=== PATIENT | female | born 1990 | race African-American/Black ===

== ENCOUNTER 2021-04-29 00:29 | Emergency (ER) | payer OTHER ==
[~2021-04-29] VITALS: Ht 185.4 cm; Wt 86.2 kg
--- NOTE | ~2021-04-29 | EMS ---
[facility] [address] [place] [address] EMS Patient Care Report Name: RICO NESS Room #: PRE M.R.#: [id number] Admission: Attend Phys: Discharge: Date of : [birth year] Report #: [id number] THIS REPORT FOR: //name// Report Transmitted: 04/29/2021 00:13 EMS Care Summary [place], [place] Incident [id number] @ 04/28/2021 23:41 Incident Location [address] [place] [address] Patient RICO NESS Male, 30 Years 1990 Patient Address [address] [place] [address] Patient History Asthma, Patient Allergies Aspirin, Patient Medications Albuterol, Chief Complaint ASTHMA ATTACK Disposition Transported No Lights/[place] Dispatch Reason Breathing Problem Transported To [facility] Narrative MEDIC 42 DISPATCHED FOR BREATHING PROBLEMS. UPON ARRIVAL ON SCENE THE PATIENT WAS FOUND SEATED UPRIGHT APPEARING IN NO DISTRESS RECEIVING CARE FROM PUMPER 41 WHO WAS ALREADY ON SCENE. THE PATIENT WAS RECIVING A ALBUTEROL TREATMENT THAT WAS SET UP PRIOR TO OUR ARRIVAL. PUMPER 41 INFORMED US THAT THE PATIENT [facility] [address] [place] [address] EMS Patient Care Report Name: RICO NESS Room #: [facility].#: [id number] Admission: Attend Phys: Discharge: Date of : 86 Report #: [id number] BELIEVED HE WAS HAVING AN ASTHMA ATTACK AND TRIED TO USE HIS RESCUE INHALER SIX TIMES AND IT DID NOT RELIEVE SYMPTOMS AT ALL. THE PATIENT'S MOTHER STATED HE DOES HAVE A HISTORY OF ASTHMA ATTACKS. IT IS LEARNED ON SCENE THAT THE PATIENT WAS BORN FEMALE BUT IDENTIFIES MALE. AFTER THE FIRST TREATMENT WAS DONE ON SCENE THE PATIENT STILL HAD WHEEZING IN ALL LOBES ON AUSCUALTATION. THE PATIENT STATED HE WANTED TO GO TO [facility]. THE PATIENT WAS ABLE TO WALK UNDER HIS OWN POWER OUTSIDE TO OUR STRETCHER WITHOUT INCIDENT AND WAS THEN TAKEN TO OUR AMBULANCE WITHOUT INCIDENT. IN THE AMBULANCE ANOTHER TREATMENT WAS STARTED AND MORE VITALS WERE OBTAINED. THE PATIENT'S LEVEL OF WHEEZING DID IMPROVE DURING TRANSPORT BUT THE WHEEZING WAS STILL PRESENT. NO OTHER CHANGES IN PATIENT CONDITION WERE SEEN DURING TRANSPORT. UPON ARRIVAL TO THE HOSPITAL THE PATIENT WAS MOVED TO THE ED WITHOUT INCIDENT AND CARE WAS TRANSFERRED TO THE ED NURSE. Initial Vitals @00:20P: 133,SpO2: 99, @00:25P: 131,BP: 112/77,SpO2: 100, @PTASpO2: 86, @00:20P: 118,R: 16,BP: 119/45,Pain: 0/10,GCS: 15,Glucose: 98,SpO2: 100,Revised Trauma: 12, @00:08P: 128,R: 18,BP: 126/81,Pain: 0/10,GCS: 15,SpO2: 100,Revised Trauma: 12, Assessments @23:58MENTAL:Person Oriented,Time Oriented,Place Oriented,Event Oriented,SKIN:HEENT:Head/Face: No Abnormalities,Neck/Airway: No Abnormalities,LUNG SOUNDS:ABDOMEN:PELVIS//GI:EXTREMITIES:Capillary Refill: Right Upper: < 2 Sec,Capillary Refill: Left Upper: < 2 Sec,Left Arm: No Abnormalities,Right Arm: No Abnormalities,PULSE:Radial: 2+ Normal,NEURO:@00:22MENTAL:Event Oriented,Time Oriented,Place Oriented,Person Oriented,SKIN:HEENT:Head/Face: No Abnormalities,Neck/Airway: No Abnormalities,LUNG SOUNDS:ABDOMEN:PELVIS//GI:EXTREMITIES:Capillary Refill: Right Upper: < 2 Sec,Capillary Refill: Left Upper: < 2 Sec,Left Arm: No Abnormalities,Right Arm: No Abnormalities,PULSE:Radial: 2+ Normal,NEURO: Impression Asthma Procedures @23:55 ALS Assessment Response: UnchangedSucceeded @PTAOxygen FlowRate: 8 Device: Nebulizer Response: ImprovedSucceeded @PTAAlbuterol - 2.5 Milligrams (mg) - Nebulized Response: Improved @00:04 Albuterol - 2.5 Milligrams (mg) - Nebulized Response: Improved @00:02 Stretcher Response: Unchanged @00:04 Oxygen FlowRate: 8 Device: Nebulizer Response: ImprovedSucceeded Timeline [facility] [address] [place] [address] EMS Patient Care Report Name: RICO NESS Room #: [facility] M.R.#: [id number] Admission: Attend Phys: Discharge: Date of : 86 Report #: [id number] 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,Oxygen FlowRate: 8 Device: Nebulizer Response: ImprovedSucceeded, 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,Albuterol - 2.5 Milligrams (mg) - Nebulized,Response: Improved 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,BP: / M,PULSE: ,RR: R,SPO2: 86 Ox,ETCO2: ,BG: ,PAIN: ,GCS: , 23:39,Call Received 23:39,Dispatch Notified 23:41,Dispatched 23:43,En Route 23:53,On Scene 23:55,At Patient 23:55,ALS Assessment,Response: UnchangedSucceeded, 00:02,Stretcher,Response: Unchanged 00:04,Albuterol - 2.5 Milligrams (mg) - Nebulized,Response: Improved 00:04,Oxygen FlowRate: 8 Device: Nebulizer Response: ImprovedSucceeded, 00:08,BP: 126/81 M,PULSE: 128,RR: 18 R,SPO2: 100 Ox,ETCO2: ,BG: ,PAIN: 0,GCS: 15, 00:11,Depart Scene 00:20,BP: / M,PULSE: 133,RR: R,SPO2: 99 Ox,ETCO2: ,BG: ,PAIN: ,GCS: , 00:20,BP: 119/45 M,PULSE: 118,RR: 16 R,SPO2: 100 Ox,ETCO2: ,B,PAIN: 0,GCS: 15, 00:25,BP: 112/77 M,PULSE: 131,RR: R,SPO2: 100 Ox,ETCO2: ,BG: ,PAIN: ,GCS: , 00:27,At Destination 00:48,Call Closed Disclaimer v1.1 Copyright 2021 [employer] This EMS Care Summary contains data elements from the applicable legal record (which may be displayed differently). It is designed to provide pertinent information for the following purposes: continuity of care, clinical quality, and state data reporting. The complete legal record is available to ED staff and administrators of the receiving hospital in [employer]'s Patient Tracker. All data is provided "as is."
--- NOTE | ~2021-04-29 | EMS ---
[facility] [address] [place] [address] EMS Patient Care Report Name: RICO NESS Room #: DEP [facility]..#: [id number] Admission: 04/29/21 Attend Phys: Discharge: 04/29/21 Date of : [birth year] Report #: [id number] THIS REPORT FOR: //name// Report Transmitted: 05/03/2021 12:16 EMS Care Summary [place], [place]/[facility] Incident [id number] @ 04/28/2021 23:41 Incident Location [address] [place] [address] Patient RICO NESS Male, 30 Years 1990 Patient Address [address] [place] [address] Patient History Asthma, Patient Allergies Aspirin, Patient Medications Albuterol, Chief Complaint ASTHMA ATTACK Disposition Transported No Lights/[place] Dispatch Reason Breathing Problem Transported To [facility] Narrative MEDIC 42 DISPATCHED FOR BREATHING PROBLEMS. UPON ARRIVAL ON SCENE THE PATIENT WAS FOUND SEATED UPRIGHT APPEARING IN NO DISTRESS RECEIVING CARE FROM PUMPER 41 WHO WAS ALREADY ON SCENE. THE PATIENT WAS RECIVING A ALBUTEROL TREATMENT THAT WAS SET UP PRIOR TO OUR ARRIVAL. PUMPER 41 INFORMED US THAT THE PATIENT [facility] [address] [place] [address] EMS Patient Care Report Name: RICO NESS Room #: DEP [facility]#: [id number] Admission: 04/29/21 Attend Phys: Discharge: 04/29/21 Date of : 86 Report #: [id number] BELIEVED HE WAS HAVING AN ASTHMA ATTACK AND TRIED TO USE HIS RESCUE INHALER SIX TIMES AND IT DID NOT RELIEVE SYMPTOMS AT ALL. THE PATIENT'S MOTHER STATED HE DOES HAVE A HISTORY OF ASTHMA ATTACKS. IT IS LEARNED ON SCENE THAT THE PATIENT WAS BORN FEMALE BUT IDENTIFIES MALE. AFTER THE FIRST TREATMENT WAS DONE ON SCENE THE PATIENT STILL HAD WHEEZING IN ALL LOBES ON AUSCUALTATION. THE PATIENT STATED HE WANTED TO GO TO [facility]. THE PATIENT WAS ABLE TO WALK UNDER HIS OWN POWER OUTSIDE TO OUR STRETCHER WITHOUT INCIDENT AND WAS THEN TAKEN TO OUR AMBULANCE WITHOUT INCIDENT. IN THE AMBULANCE ANOTHER TREATMENT WAS STARTED AND MORE VITALS WERE OBTAINED. THE PATIENT'S LEVEL OF WHEEZING DID IMPROVE DURING TRANSPORT BUT THE WHEEZING WAS STILL PRESENT. NO OTHER CHANGES IN PATIENT CONDITION WERE SEEN DURING TRANSPORT. UPON ARRIVAL TO THE HOSPITAL THE PATIENT WAS MOVED TO THE ED WITHOUT INCIDENT AND CARE WAS TRANSFERRED TO THE ED NURSE. Initial Vitals @00:20P: 133,SpO2: 99, @00:25P: 131,BP: 112/77,SpO2: 100, @PTASpO2: 86, @00:20P: 118,R: 16,BP: 119/45,Pain: 0/10,GCS: 15,Glucose: 98,SpO2: 100,Revised Trauma: 12, @00:08P: 128,R: 18,BP: 126/81,Pain: 0/10,GCS: 15,SpO2: 100,Revised Trauma: 12, Assessments @23:58MENTAL:Person Oriented,Time Oriented,Place Oriented,Event Oriented,SKIN:HEENT:Head/Face: No Abnormalities,Neck/Airway: No Abnormalities,LUNG SOUNDS:ABDOMEN:PELVIS//GI:EXTREMITIES:Capillary Refill: Right Upper: < 2 Sec,Capillary Refill: Left Upper: < 2 Sec,Left Arm: No Abnormalities,Right Arm: No Abnormalities,PULSE:Radial: 2+ Normal,NEURO:@00:22MENTAL:Event Oriented,Time Oriented,Place Oriented,Person Oriented,SKIN:HEENT:Head/Face: No Abnormalities,Neck/Airway: No Abnormalities,LUNG SOUNDS:ABDOMEN:PELVIS//GI:EXTREMITIES:Capillary Refill: Right Upper: < 2 Sec,Capillary Refill: Left Upper: < 2 Sec,Left Arm: No Abnormalities,Right Arm: No Abnormalities,PULSE:Radial: 2+ Normal,NEURO: Impression Asthma Procedures @23:55 ALS Assessment Response: UnchangedSucceeded @PTAOxygen FlowRate: 8 Device: Nebulizer Response: ImprovedSucceeded @PTAAlbuterol - 2.5 Milligrams (mg) - Nebulized Response: Improved @00:04 Albuterol - 2.5 Milligrams (mg) - Nebulized Response: Improved @00:02 Stretcher Response: Unchanged @00:04 Oxygen FlowRate: 8 Device: Nebulizer Response: ImprovedSucceeded [address] [address] EMS Patient Care Report Name: RICO NESS [facility] [id number] Admission: 04/29/21 Attend Phys: Discharge: 04/29/21 Date of : 86 Report #: [id number] INCIDENT COORDINATOR,Oxygen FlowRate: 8 Device: Nebulizer Response: ImprovedSucceeded, INCIDENT COORDINATOR,Albuterol - 2.5 Milligrams (mg) - Nebulized,Response: Improved INCIDENT COORDINATOR,BP: / M,PULSE: ,RR: R,SPO2: 86 Ox,ETCO2: ,BG: ,PAIN: ,GCS: , 23:39,Call Received 23:39,Dispatch Notified 23:41,Dispatched 23:43,En Route 23:53,On Scene 23:55,At Patient 23:55,ALS Assessment,Response: UnchangedSucceeded, 00:02,Stretcher,Response: Unchanged 00:04,Albuterol - 2.5 Milligrams (mg) - Nebulized,Response: Improved 00:04,Oxygen FlowRate: 8 Device: Nebulizer Response: ImprovedSucceeded, 00:08,BP: 126/81 M,PULSE: 128,RR: 18 R,SPO2: 100 Ox,ETCO2: ,BG: ,PAIN: 0,GCS: 15, 00:11,Depart Scene 00:20,BP: / M,PULSE: 133,RR: R,SPO2: 99 Ox,ETCO2: ,BG: ,PAIN: ,GCS: , 00:20,BP: 119/45 M,PULSE: 118,RR: 16 R,SPO2: 100 Ox,ETCO2: ,B,PAIN: 0,GCS: 15, 00:25,BP: 112/77 M,PULSE: 131,RR: R,SPO2: 100 Ox,ETCO2: ,BG: ,PAIN: ,GCS: , 00:27,At Destination 00:48,Call Closed Disclaimer v1.1 Copyright 2021 [email or web address] This EMS Care Summary contains data elements from the applicable legal record (which may be displayed differently). It is designed to provide pertinent information for the following purposes: continuity of care, clinical quality, and state data reporting. The complete legal record is available to ED staff and administrators of the receiving hospital in [employer]'s Patient Tracker. All data is provided "as is."
[~2021-04-29 00:29] MED LIST: ADVAIR 100-501 EACH; ADVAIR 500-501 EACH INH; ALBUTEROL2.5 MG/0.1; PREDNISONE 20 M20 M1 PO; PROAIR HFA8.5 GM IH; PROVENTIL HFA6.7 G1 INH; SINGULAIR 10 MG10 MG PO
[2021-04-29 00:58] LABS: ABSOLUTE NEUTROPHILS 3.3 thou/uL (1.4-8.2); BASOPHILS 0.7 % (0.0-2.0); EOSINOPHILS 9.8 % (0.0-3.0); HEMATOCRIT 39.7 % (37.0-47.0); HEMOGLOBIN 13.1 gm/dL (12.0-15.0); LYMPHOCYTES 37.4 % (24.0-44.0); MCH 28.7 pg (26.0-34.0); MCHC 32.9 g/dL (28.0-37.0); MCV 87.2 fL (80.0-100.0); MONOCYTES 5.4 % (1.0-8.0); PLATELET COUNT 366 thou/uL (150-400); POLYS 46.7 % (36.0-66.0); RBC 4.56 mil/uL (4.20-5.00); RDW 13.6 % (10.5-14.5)
[2021-04-29 01:06] LABS: CALCIUM 9.7 mg/dL (8.5-10.1); CREATININE 1.2 mg/dL (0.6-1.0); POTASSIUM 3.2 mmol/L (3.5-5.1)
[2021-04-29] MEDS ORDERED: PROAIR HFA8.5 GM INH (01:31)
[2021-04-29 03:02] VITALS: BP 135/75
--- NOTE | 2021-04-29 10:00 | EKG ---
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
== END 2021-04-29 03:06 | disposition home or self-care (01) ==
LOC: ER 00:29
PROVIDERS: Student in an Organized Health Care Education/Training Program
DX: J45.901 Unspecified asthma with (acute) exacerbation (principal); Z20.822 Contact with and (suspected) exposure to COVID-19; Z88.6 Allergy status to analgesic agent; Z91.010 Allergy to peanuts